=== PATIENT | female | born 1980 | race Caucasian/White ===

== ENCOUNTER 2021-06-20 10:52 | Emergency (ER) | payer OTHER ==
[2021-06-20 11:36] LABS: BASOPHIL 0.7 % (0-2); EOSINOPHIL 4.6 % (0-5); HCT 39.6 % (37.0-47.0); HGB 13.5 g/dl (12.5-16.0); LYMPHOCYTE 26.2 % (15-48); MCH 30.9 pg (25.0-31.0); MCHC 34.1 g/dL (32.0-36.0); MCV 90.6 fL (78.0-100.0); MONOCYTE 8.5 % (0-12); MPV 9.5 fL (6.0-9.5); NEUTROPHIL 59.7 % (41-80); NRBC 0; PLT 260 K/uL (150-400); RBC 4.37 M/uL (4.20-5.40); RDW 12.5 % (11.5-14.0); WBC 6.7 K/uL (4.0-10.5)
[2021-06-20 11:41] LABS: BILIRUBIN NEGATIVE (NEGATIVE); BLOOD NEGATIVE Ery/uL (NEGATIVE); CLARITY CLEAR (CLEAR); COLOR YELLOW (YELLOW); GLUCOSE (U) NORMAL (NORMAL); LEUKOCYTES NEGATIVE Leu/uL (NEGATIVE); NITRITE NEGATIVE (NEGATIVE); PROTEIN NEGATIVE (NEGATIVE); UROBILINOGEN 0.2 mg/dL (0.2-1.0)
[2021-06-20 11:58] LABS: ALBUMIN 3.8 g/dL (3.4-5.0); BILIRUBIN - TOTAL 0.3 mg/dL (0.2-1.0); BUN/CREAT RATIO (CALC) 24.7 RATIO; CREATININE 0.77 mg/dL (0.51-0.95); GLOBULIN (CALCULATION) 3.4 g/dL; POTASSIUM 3.8 mmol/L (3.5-5.1); TOTAL PROTEIN 7.2 g/dL (6.4-8.2)
[2021-06-20] MEDS ORDERED: ONDANSETRON ODT4 MG PO (13:08)
== END 2021-06-20 13:18 | disposition home or self-care (01) ==
LOC: FER 10:52
PROVIDERS: Emergency Medicine
DX: R10.31 Right lower quadrant pain (principal)
CPT/HCPCS: 36415; 80053; 81003; 83690; 85025; Q9967